=== PATIENT | female | born 1985 | race Caucasian/White ===

== ENCOUNTER 2017-01-05 01:06 | Inpatient (IN) | payer OTHER ==
[~2017-01-05] VITALS: Ht 167.6 cm; Wt 109.3 kg
[2017-01-05] MEDS ORDERED: LACTATED RINGERS 1,000 ML IV SCH (08:03)
[2017-01-05] MEDS ORDERED: PREN-380 PO (08:03)
[2017-01-05] MEDS ORDERED: CITRIC ACID/SODIUM CITRATE 30 ML UDC PO SCH (08:05)
[2017-01-05 08:29] LABS: BASOPHILS # (AUTO) 0.3 K/uL (0.00-0.22); BASOPHILS % (AUTO) 3.5 % (0.0-2.0); EOSINOPHILS # (AUTO) 0.1 K/uL (0-0.4); EOSINOPHILS % (AUTO) 1.1 % (0.0-4.0); HEMATOCRIT 37.1 % (36-48); HEMOGLOBIN 11.7 g/dL (12.0-16.0); LYMPHOCYTES # (AUTO) 1.9 K/uL (2.5-16.5); LYMPHOCYTES % (AUTO) 24.8 % (20.5-51.1); MEAN CORPUSCULAR HEMOGLOBIN 24 pg (27-31); MEAN CORPUSCULAR HGB CONC 32 g/dL (33-37); MEAN CORPUSCULAR VOLUME 76 fL (80-94); MONOCYTES # (AUTO) 0.2 K/uL (0.8-1.0); MONOCYTES % (AUTO) 3.1 % (1.7-9.3); NEUTROPHILS # (AUTO) 5.3 K/uL (1.8-7.7); NEUTROPHILS % (AUTO) 67.5 % (42.2-75.2); PLATELET COUNT (AUTO) 331 K/uL (140-450); RED BLOOD CELL COUNT(AUTO) 4.89 MIL/uL (4.20-5.40); RED CELL DISTRIBUTION WIDTH 14.8 % (11.6-13.7); WHITE BLOOD COUNT (AUTO) 7.8 K/uL (4.8-10.8)
[2017-01-05 09:04] LABS: BILIRUBIN,URINE 1+ (NEGATIVE); BLOOD, URINE NEGATIVE (NEGATIVE); COLOR,URINE YELLOW (YELLOW); PH,URINE 5.5 (5.0-9.0); UGLUCOSE TRACE (NEGATIVE)
[2017-01-05 09:18] LABS: APPEARANCE,URINE SLIGHTLY CLOUDY (CLEAR)
[2017-01-05 09:20] LABS: RBC,URINE 0-5 (RARE) /HPF (0-5)
[2017-01-05 09:21] LABS: LEUKOCYTE ESTERASE ,URINE 1+ (NEGATIVE); NITRITE, URINE POSITIVE (NEGATIVE)
--- NOTE | 2017-01-05 09:26 | NUR ---
PATIENT HAS BEEN SCREENED AND CATEGORIZED LOW NUTRITION RISK. PATIENT WILL BE SEEN WITHIN 7 DAYS OF ADMISSION. 01/11/[address]
[2017-01-05] MEDS ORDERED: BUPIVACAINE-MPF 0.75% 10 ML VIAL INJ ONE (11:30)
[2017-01-05] MEDS ORDERED: ePHEDrine 50 MG/ML VIAL ONE (11:30)
[2017-01-05] MEDS ORDERED: OXYTOCIN 10 UNITS/ML VIAL ONE (11:30)
[2017-01-05] MEDS ORDERED: MORPHINE PRES FREE 10 MG/10 ML AMP IV ONE (11:55)
[2017-01-05] MEDS ORDERED: MIDAZOLAM 2 MG/2 ML VIAL ONE (11:55)
[2017-01-05 12:25] LABS: ANION GAP 17.4 (8-16); CARBON DIOXIDE 18.9 mmol/L (21-32); CREATININE 0.8 mg/dL (0.6-1.3); POTASSIUM 4.3 mmol/L (3.5-5.1)
[2017-01-05 12:31] LABS: ALBUMIN 2.7 g/dL (3.4-5.0); TOTAL BILIRUBIN 0.3 mg/dL (0.0-1.0)
[2017-01-05] MEDS ORDERED: ONDANSETRON 4 MG/2 ML VIAL IVP PRN (12:35)
[2017-01-05] MEDS ORDERED: diphenhydrAMINE 50 MG/ML VIAL IVP PRN (12:35)
[2017-01-05] MEDS ORDERED: KETOROLAC 30 MG/ML VIAL IVP PRN ×2 (12:35→14:15)
[2017-01-05] MEDS ORDERED: OXYTOCIN 20 UNITS/LR PREMIX 1,000 ML IV SCH (14:11)
[2017-01-05] MEDS ORDERED: MEASLES, MUMPS, AND RUBELLA 1 VIAL SQVAC PRN (14:15)
[2017-01-05] MEDS ORDERED: HYDROmorphone 1 MG/ML AMP IVP PRN (14:15)
[2017-01-05] MEDS ORDERED: diphenhydrAMINE 50 MG/ML VIAL ONE (14:17)
[2017-01-05] MEDS ORDERED: ONDANSETRON 4 MG/2 ML VIAL IVP SCH ×2 (18:30→19:00)
[2017-01-05] MEDS ORDERED: METOCLOPRAMIDE 10 MG/2 ML INJ VIAL IVP SCH (18:30)
[2017-01-06 06:46] LABS: BASOPHILS # (AUTO) 0.1 K/uL (0.00-0.22); BASOPHILS % (AUTO) 0.5 % (0.0-2.0); EOSINOPHILS # (AUTO) 0.2 K/uL (0-0.4); EOSINOPHILS % (AUTO) 1.6 % (0.0-4.0); HEMATOCRIT 28.9 % (36-48); HEMOGLOBIN 9.2 g/dL (12.0-16.0); LYMPHOCYTES # (AUTO) 1.7 K/uL (2.5-16.5); LYMPHOCYTES % (AUTO) 17.2 % (20.5-51.1); MEAN CORPUSCULAR HEMOGLOBIN 24 pg (27-31); MEAN CORPUSCULAR HGB CONC 32 g/dL (33-37); MEAN CORPUSCULAR VOLUME 76 fL (80-94); MONOCYTES # (AUTO) 0.4 K/uL (0.8-1.0); MONOCYTES % (AUTO) 4.4 % (1.7-9.3); NEUTROPHILS # (AUTO) 7.6 K/uL (1.8-7.7); NEUTROPHILS % (AUTO) 76.3 % (42.2-75.2); PLATELET COUNT (AUTO) 287 K/uL (140-450); RED BLOOD CELL COUNT(AUTO) 3.82 MIL/uL (4.20-5.40); RED CELL DISTRIBUTION WIDTH 14.9 % (11.6-13.7)
[2017-01-06] MEDS: ACETAMINOPHEN 325 MG TAB PO PRN (23:24)
[2017-01-07] MEDS ORDERED: SIMETHICONE 80 MG TAB.CHEW PO PRN (08:00)
[2017-01-07] MEDS ORDERED: SODIUM PHOSPHATE 118 ML ENEM RC PRN (08:00)
[2017-01-07] MEDS: oxyCODONE/APAP 5/325 MG 1 TAB TAB PO PRN ×2 (10:00→19:49)
[2017-01-07] MEDS: BISACODYL 5 MG TABEC PO PRN (10:02)
[2017-01-07] MEDS: DOCUSATE SODIUM 100 MG GELCAP PO PRN (10:02)
[2017-01-08] MEDS: oxyCODONE/APAP 5/325 MG 1 TAB TAB PO PRN ×3 (02:04→16:04)
[2017-01-08] MEDS: BISACODYL 5 MG TABEC PO PRN ×2 (08:56→21:29)
[2017-01-08] MEDS: DOCUSATE SODIUM 100 MG GELCAP PO PRN ×2 (08:56→21:29)
[2017-01-08] MEDS ORDERED: metFORMIN 500 MG TAB PO SCH (09:27)
[2017-01-08] MEDS: metFORMIN 500 MG TAB PO SCH (18:12)
[2017-01-08] MEDS: ACETAMINOPHEN 325 MG TAB PO PRN (21:29)
[2017-01-09] MEDS: oxyCODONE/APAP 5/325 MG 1 TAB TAB PO PRN (08:29)
[2017-01-09] MEDS: metFORMIN 500 MG TAB PO SCH (09:07)
[2017-01-09] MEDS ORDERED: FERR325E14 PO (12:45)
[2017-01-09] MEDS ORDERED: IBUP-1842 PO (12:46)
== END 2017-01-09 14:40 | disposition home or self-care (01) | DRG 540 ==
LOC: MLD 07:30 → MFCC 11:50
PROVIDERS: ADMIT Obstetrics & Gynecology; ATTEND Obstetrics & Gynecology
PROC: 10D00Z1 Extraction of Products of Conception, Low, Open Approach (ICD-10-PCS; principal; 2017-01-05 11:00)
PROC: 3E0234Z Introduction of Serum, Toxoid and Vaccine into Muscle, Percutaneous Approach (ICD-10-PCS; 2017-01-07)
PROC: 3E0234Z Introduction of Serum, Toxoid and Vaccine into Muscle, Percutaneous Approach (ICD-10-PCS; 2017-01-08)
DX: O34.211 Maternal care for low transverse scar from previous cesarean delivery (principal); Z68.41 Body mass index [BMI] 40.0-44.9, adult; O99.214 Obesity complicating childbirth; O24.429 Gestational diabetes mellitus in childbirth, unspecified control; O99.344 Other mental disorders complicating childbirth; F41.9 Anxiety disorder, unspecified; E66.01 Morbid (severe) obesity due to excess calories; O36.60X0 Maternal care for excessive fetal growth, unspecified trimester, not applicable or unspecified; Z83.3 Family history of diabetes mellitus; Z82.49 Family history of ischemic heart disease and other diseases of the circulatory system; Z82.5 Family history of asthma and other chronic lower respiratory diseases; Z90.49 Acquired absence of other specified parts of digestive tract; Z37.0 Single live birth; Z3A.39 39 weeks gestation of pregnancy; Z23 Encounter for immunization
CPT/HCPCS: 36415; 51702; 80053; 81001; 82947; 82948; 85025; 86592; 86886; 86900; 86901; 87081; 87086; 90707; 90715; J0690; J1200; J2250; J2270; J2405; J2590; J2765; J3490; J7060; J7120